=== PATIENT | female | born 1930 ===

== ENCOUNTER 2016-10-13 09:52 | Inpatient (IN) | payer MEDICARE, MEDICAID ==
[2016-10-13] MEDS ORDERED: Acetaminophen 650 MG Suppository ONE (10:05)
[2016-10-13 11:15] LABS: Hemoglobin 12.9 g/dL (12.0-16.0); Mean Corpuscular HGB CONC 31.1 g/dL (32.0-36.0); Mean Corpuscular Hemoglobin 31.1 pg (27.0-31.0); Mean Platelet Volume 8.9 fL (7.4-10.4); Platelet Count 157 thou/uL (130-400); RBC Distribution Width 13.8 % (11.5-14.5); Red Blood Cell (RBC) Count 4.16 mill/uL (4.20-5.40); White Blood Cell (WBC) Count 8.6 thou/uL (4.8-10.8)
[2016-10-13 11:26] LABS: ALT (SGPT) 22 U/L (0-55); AST (SGOT) 24 U/L (5-34); Albumin 2.8 g/dL (3.4-4.8); Alkaline Phosphatase 71 U/L (40-150); Anion Gap 11 mmol/L (10-20); BUN (Urea Nitrogen) 19 mg/dL (9.8-20.1); Bilirubin, Total 0.7 mg/dL (0.2-1.2); Calc. Creatinine Clearance 0 mL/min (70-130); Calcium 8.2 mg/dL (7.8-10.44); Carbon Dioxide 32 mmol/L (23-31); Chloride 118 mmol/L (98-107); Estimated GFR-MDRD 64; Globulin 3.7 g/dL (2.4-3.5); Glucose 120 mg/dL (83-110); Potassium 3.1 mmol/L (3.5-5.1); Protein, Total 6.5 g/dL (5.8-8.1); Sodium 158 mmol/L (136-145)
[2016-10-13 11:28] LABS: CKMB 0.4 ng/mL (0-6.6); Troponin I 0.033 ng/mL (< 0.028)
[2016-10-13 11:50] LABS: Anisocytosis SLIGHT = 6-15 cells (100X) (0-5/hpf); Large Platelets SLIGHT; Lymphocytes 25 % (21-51); MDiff Complete? YES; Monocytes 11 % (0-10); Neutrophil 64 % (42-75)
[2016-10-13 12:18] LABS: Blood, Urine Small (Negative); Clarity Turbid (Clear); Glucose, Urine (Dipstick) Negative (Negative); Leukocyte Trace (Negative); Nitrite Positive (Negative); Protein, Urine (Dipstick) 30 mg/dL (Neg-Trace); Specific Gravity, Urine 1.025 (1.005-1.030)
[2016-10-13 12:20] LABS: Bilirubin Negative (Negative)
[2016-10-13 12:26] LABS: Bacteria/HPF 3+ HPF (None Seen); Crystals/HPF 1+ CA OXALATE HPF (Negative); RBC/HPF 0-3 HPF (0-3); Squamous Epithelial 0-3 HPF (0-3)
[2016-10-13 12:27] LABS: Other Microscopic Description 1+ AMORPHOUS URATES
[2016-10-13] MEDS ORDERED: Levofloxacin 500 mg/D5W 100 ml Premix Bag ONE (12:48)
[2016-10-13] MEDS ORDERED: Ondansetron HCl/PF 4 MG/2 ML Vial IVP PRN (14:04)
[2016-10-13] MEDS ORDERED: Ondansetron ODT 4 MG TAB SL PRN (14:04)
[2016-10-13] MEDS ORDERED: Acetaminophen 325 MG TAB PO PRN (14:04)
[2016-10-13] MEDS ORDERED: Sodium Chloride 0.9% 1,000 ML IV SCH (14:04)
[2016-10-13] MEDS ORDERED: Potassium Chloride 20 MEQ/100 ML PREMIX BAG IVPB SCH (17:45)
[2016-10-13] MEDS ORDERED: Labetalol HCl 100 MG/20 ML VIAL SLOW IVP PRN (18:50)
[2016-10-13 18:56] LABS: CKMB 0.8 ng/mL (0-6.6)
[2016-10-13] MEDS: Dextrose 5 %-0.45 % NaCl 1,000 ML IV SCH (19:44)
--- NOTE | 2016-10-13 20:28 | CT ---
CT OF THE BRAIN WITHOUT CONTRAST 10/13/16 No prior studies were available for comparison. Diffuse severe atrophy is present. There is moderate dilation of the ventricles, though it seems mor e likely that it is due to the severe atrophy than any obstruction. All ventricles are dilated somew hat. Periventricular and deep white matter lucency is profound and suggestive of chronic ischemic ch anges. There was no mass or sign of definite acute stroke. No bleeding was seen. The calvarium appea rs intact and the visible paranasal sinuses are clear. There does appear to be a very short air flui d level in the sphenoid sinus, but I see no reason for it otherwise. IMPRESSION: Severe atrophy and chronic ischemic changes. Prominent sized ventricles, but it seems a little more likely that this is due to the severe atrophy present than anything acute. POS: HOME
--- NOTE | 2016-10-13 20:58 | RAD ---
PORTABLE CHEST 10/13/16 An AP portable film at 1047 is presented with no prior films available for comparison. This portable film at 1047 snows mild cardiomegaly but no vascular congestion, edema, or large pleural effusion. While the patient is turned to the side slightly, no definite lobar infiltrate was seen. left basila r infiltrates would be easily missed on this study. Faint calcification is seen in the aortic arch. The bones are osteopenic. IMPRESSION: Mild cardiomegaly but no definite acute findings. POS: HOME
[2016-10-13] MEDS: Metoprolol Tartrate 25 MG TAB PO SCH (21:25)
--- NOTE | 2016-10-13 23:13 | HP ---
CHIEF COMPLAINT: Alteration of mental status and lethargy. HISTORY OF PRESENT ILLNESS: Ms. Guerra is an 86-year-old female resident of [facility] for the past 3 months, who presented to the emergency room after she has had a decline in overall mental status over the last couple of weeks. She does have a history of Alzheimer's dementia and is on max medical therapy and apparently has had a decline in appetite and increased drowsiness over the last couple of weeks. Apparently yesterday, she had a fall , but did not hit her head. Neurological evaluation was performed by the nursing staff at the hospital, and she continued to decline in her alertness, and therefore it was recommended she go to the emergency department today to be further evaluated. In the emergency room, she was found to be extremely dehydrated with hypernatremia, hypokalemia, evidence of urinary tract infection with positive nitrite and indeterminate troponin. Patient has been given some IV fluids in the emergency room and antibiotics and has been admitted for further treatment of her dehydration, hypernatremia, urinary tract infection, and followup of cultures. Patient apparently was febrile in the ambulance of 101.3, in the ER was 99. Her blood pressure and heart rate have been stable. She had lab work performed at the nursing facility yesterday that showed elevation of her white blood cell count at 11.6 with improvement of that today to 8.6 with 64% neutrophils and 21.6% lymphocytes. She has a history of coronary artery disease and takes aspirin and Plavix. Per PA at the detention, the patient has lucid intervals in which she is aware of her person, but not place or time. She normally is able to feed herself and spends majority of time in wheelchair. PAST MEDICAL HISTORY: 1. Depression. 2. Coronary artery disease. 3. Hypertension. 4. Alzheimer's disease. 5. Hyperlipidemia. 6. Osteoarthritis. PAST SURGICAL HISTORY: Cannot be verified per detention charting or with patient. She does have scarring to the left knee to the medial and lateral aspects, which could be from prior fracture management or some type of peripheral vascular surgery. ALLERGIES: MEPERIDINE and SULFA. MEDICATIONS: Amlodipine 5 mg daily, Lopressor 50 mg b.i.d., Namenda 10 mg b.i.d., Lexapro 10 mg daily, Plavix 75 mg daily, Ecotrin 81 mg daily, Aricept 10 mg daily. Patient had been on Risperdal, but this has been discontinued over the past 7 days. SOCIAL HISTORY: Patient has been a resident of [facility] for approximately 3 months and was transferred from another facility after family members were no longer able to take care of her. Negative smoking and alcohol per recent history. Patient is . FAMILY HISTORY: Noncontributory. REVIEW OF SYSTEMS: Ten-system review unable to be obtained from the patient, but as reported per HPI. PHYSICAL EXAMINATION: VITAL SIGNS: Presenting vital signs to the ER blood pressure 160/72, heart rate 75, O2 sat 89% on room air, respirations 18, temperature 101.1 rectal. On the floor, temperature 98.0, pulse 66, respirations 12, 99% O2 sat on 2 liters per minute, blood pressure 176/77. NEUROLOGIC: Well-developed, thin female in no acute distress, somnolent, but arouses with calling her name. She will occasionally answer questions. Denies pain. She will intermittently follow commands. She quickly falls back asleep if not stimulated. HEENT: Normocephalic, atraumatic. Pupils equally, round, and reactive to light and accommodation. Extraocular muscles could not be grossly evaluated due to lack of patient cooperation. Nares are patent without discharge. Tongue protrudes in the midline. NECK: Supple without lymphadenopathy, thyromegaly, JVD, or bruit. HEART: Regular rate and rhythm with normal S1, S2. No murmurs, clicks, rubs, or gallops. LUNGS: Clear to auscultation with good air entry bilaterally. No crackles or wheezes. ABDOMEN: Positive bowel sounds in all four quadrants. Soft, nontender, nondistended, no masses, guarding, or rebound tenderness. EXTREMITIES: No cyanosis, clubbing, or edema. NEUROLOGICAL: Cranial nerves II through XII are grossly intact without focal deficits, but unable to assess extraocular muscles due to lack of cooperation, but grossly follows figures with her eyes. She holds her right hand and a flexion automatic developer, but seems to have no weakness, otherwise of the right upper extremity. Left lower extremity is without obvious weakness and has a normal grasp. Bilateral lower extremity weakness. Babinskis are negative bilaterally. No clonus. LABORATORY DATA: White count 8.6, hemoglobin 12.9, hematocrit 41.6, MCV 100, platelets 157, 64% neutrophils, 25% lymphocytes. Sodium 158, potassium 3.1, chloride 118, bicarb 32, BUN 19, creatinine 0.84, glucose 120, calcium 8.2. Total bilirubin 0.7, AST 24, ALT 22, alkaline phosphatase 71, CK-MB 0.4, troponin I 0.033 (no baseline for comparison), albumin 2.8, globulin 3.7, urine significant for 30 protein, trace ketones, small blood, positive nitrite, trace LE, 0-3 rbc, 7-10 wbc, calcium oxalate crystals 1+, 3+ bacteria, and amorphous urate is 1+, urine culture pending, blood culture x2 pending. IMAGING: Portable chest x-ray difficult to interpret with left lung base not well seen. Radiology report pending. EKG right bundle branch block with inverted T waves anteriorly with no old EKG to compare, no ST elevation or depression. Sinus rhythm. ASSESSMENT AND PLAN: 1. Altered mental status, acute on chronic. This is likely multifactorial due to profound dehydration with hypernatremia, hypokalemia, urinary tract infection , and advanced Alzheimer dementia. Patient has been given 1500 mL of normal saline in 500 mL bolus x3 in the emergency department and has been ordered to run at 125 ml/hr overnight. We will rule out further contributing factors with a CT scan of the brain without contrast. TSH has been done yesterday at the nursing facility and was normal. As her sodium improves, her potassium improves and her infection is treated, hopefully her mental status will clear to her baseline, which at this point is still unclear. 2. Hypernatremia. Please see problem #1. 3. Hypokalemia. We will order 20 mEq IV potassium of piggyback. We will repeat her chemistry profile in the a.m. 4. Dehydration. Please see problem #1. 5. Urinary tract infection. Patient was administered Levaquin 250 mg IV and will continue this every 24 hours. We will follow up urine and blood cultures x2. 6. Alzheimer's disease. If to make the patient's mental status improves, she will be administered her Namenda and Aricept. 7. Depression. If the patient's mental status improves enough for her to be safe with oral intake, she will be continued on her escitalopram. 8. Hypertension. This will be monitored. Patient will be continued on her home meds, again if her oral intake improves. We will write p.r.n. Sadiapressor IV. 9. Coronary artery disease. Patient will be continued on her aspirin and Plavix. 10. Hyperlipidemia. Patient is currently not on statin therapy more than likely due to age. 11. Code status. Patient has a responsible libertarian listed, who is her daughter who states that she has an out of hospital, DO NOT RESUSCITATE as well as her medical power of automatic developer on file at home. This was verified by ED nursing staff with the nursing facility. I am not able to speak with the medical power of automatic developer directly during the course of this admission to determine her code status overnight. Therefore, she will remain FULL CODE. 12. Prophylaxis. We will give Protonix IV for now as well as oral intake improves and place TEDs and SCDs on the patient. JASMIN
[2016-10-14] MEDS: Dextrose 5 %-0.45 % NaCl 1,000 ML IV SCH ×2 (05:29→17:45)
[2016-10-14 06:31] LABS: Band 2 % (5-11); Eosinophils 5 % (0-10); Hemoglobin 10.7 g/dL (12.0-16.0); Lymphocytes 19 % (21-51); MDiff Complete? YES; Mean Corpuscular HGB CONC 32.6 g/dL (32.0-36.0); Mean Corpuscular Hemoglobin 32.4 pg (27.0-31.0); Mean Corpuscular Volume 99.1 fl (81.0-99.0); Mean Platelet Volume 9.6 fL (7.4-10.4); Monocytes 5 % (0-10); Neutrophil 69 % (42-75); Platelet Count 124 thou/uL (130-400); RBC Distribution Width 13.4 % (11.5-14.5); Red Blood Cell (RBC) Count 3.31 mill/uL (4.20-5.40); White Blood Cell (WBC) Count 8.3 thou/uL (4.8-10.8)
[2016-10-14 06:40] LABS: Anion Gap 7 mmol/L (10-20); BUN (Urea Nitrogen) 12 mg/dL (9.8-20.1); Calc. Creatinine Clearance 56 mL/min (70-130); Calcium 7.4 mg/dL (7.8-10.44); Carbon Dioxide 28 mmol/L (23-31); Chloride 121 mmol/L (98-107); Estimated GFR-MDRD Greater than 90; Glucose 154 mg/dL (83-110); Potassium 3.3 mmol/L (3.5-5.1); Sodium 153 mmol/L (136-145)
[2016-10-14] MEDS: Clopidogrel Bisulfate 75 MG TAB PO SCH (09:00)
[2016-10-14] MEDS ORDERED: Donepezil HCl 10 MG TAB PO SCH (09:00)
[2016-10-14] MEDS: Aspirin 81 mg Enteric Coated Tablet PO SCH (09:00)
[2016-10-14] MEDS ORDERED: Escitalopram Oxalate 20 mg Tablet PO SCH (09:00)
[2016-10-14] MEDS: Metoprolol Tartrate 25 MG TAB PO SCH ×2 (09:00→20:43)
[2016-10-14] MEDS: Levofloxacin/D5W 250 MG in Premix Bag 1 BAG IVPB SCH (14:41)
[2016-10-14] MEDS: Pantoprazole 40 MG VIAL IVP SCH (14:41)
[2016-10-14] MEDS: Donepezil HCl 10 MG TAB PO SCH (20:43)
[2016-10-15] MEDS: Dextrose 5 %-0.45 % NaCl 1,000 ML IV SCH ×3 (04:03→13:39)
[2016-10-15] MEDS: Nystatin Powder 15 GM BOT TOP PRN (04:11)
[2016-10-15] MEDS: Pantoprazole 40 MG VIAL IVP SCH (08:37)
[2016-10-15] MEDS: Metoprolol Tartrate 25 MG TAB PO SCH ×2 (08:37→20:32)
[2016-10-15] MEDS: Aspirin 81 mg Enteric Coated Tablet PO SCH (08:39)
[2016-10-15] MEDS: Clopidogrel Bisulfate 75 MG TAB PO SCH (08:40)
[2016-10-15] MEDS: Nystatin Powder 15 GM BOT TOP SCH (08:57)
[2016-10-15] MEDS: Levofloxacin/D5W 250 MG in Premix Bag 1 BAG IVPB SCH (13:22)
[2016-10-15] MEDS: Donepezil HCl 10 MG TAB PO SCH (20:32)
[2016-10-16] MEDS: Dextrose 5 %-0.45 % NaCl 1,000 ML IV SCH ×4 (00:34→16:00)
[2016-10-16 08:28] LABS: ALT (SGPT) 16 U/L (0-55); AST (SGOT) 19 U/L (5-34); Albumin 2.3 g/dL (3.4-4.8); Alkaline Phosphatase 59 U/L (40-150); Anion Gap 9 mmol/L (10-20); BUN (Urea Nitrogen) 4 mg/dL (9.8-20.1); Bilirubin, Total 0.5 mg/dL (0.2-1.2); Calc. Creatinine Clearance 59 mL/min (70-130); Calcium 7.4 mg/dL (7.8-10.44); Carbon Dioxide 29 mmol/L (23-31); Chloride 110 mmol/L (98-107); Estimated GFR-MDRD Greater than 90; Globulin 2.9 g/dL (2.4-3.5); Glucose 117 mg/dL (83-110); Protein, Total 5.2 g/dL (5.8-8.1); Sodium 145 mmol/L (136-145)
[2016-10-16 08:41] LABS: Potassium 2.7 mmol/L (3.5-5.1)
[2016-10-16 08:58] LABS: #Basophils 0.1 thou/uL (0.0-0.2); #Eosinphils 0.2 thou/uL (0.0-0.7); #Lymphocytes 1.1 thou/uL (1.20-3.40); #Monocytes 0.8 thou/uL (0.11-0.59); #Neutrophils 5.3 thou/uL (1.40-6.50); %Basophils 0.9 % (0.0-1.0); %Eosinophils 2.4 % (0.0-10.0); %Lymphocytes 15.2 % (21.0-51.0); %Monocytes 10.9 % (0.0-10.0); %Neutrophils 70.6 % (42.0-75.0); Hemoglobin 11.8 g/dL (12.0-16.0); Mean Corpuscular HGB CONC 34.6 g/dL (32.0-36.0); Mean Corpuscular Hemoglobin 32.9 pg (27.0-31.0); Mean Platelet Volume 9.8 fL (7.4-10.4); Platelet Count 118 thou/uL (130-400); RBC Distribution Width 12.6 % (11.5-14.5); Red Blood Cell (RBC) Count 3.59 mill/uL (4.20-5.40); White Blood Cell (WBC) Count 7.4 thou/uL (4.8-10.8)
[2016-10-16] MEDS ORDERED: Potassium Chloride 20 MEQ TAB PO SCH (09:00)
[2016-10-16 09:56] VITALS: BMI 20.7
[2016-10-16] MEDS: Pantoprazole 40 MG VIAL IVP SCH (10:24)
[2016-10-16] MEDS: Aspirin 81 mg Enteric Coated Tablet PO SCH (10:24)
[2016-10-16] MEDS: Metoprolol Tartrate 25 MG TAB PO SCH ×2 (10:27→20:47)
[2016-10-16] MEDS: Clopidogrel Bisulfate 75 MG TAB PO SCH (10:28)
[2016-10-16] MEDS: Nystatin Powder 15 GM BOT TOP SCH (10:35)
[2016-10-16] MEDS ORDERED: Ciprofloxacin 500 MG TAB PO SCH (12:45)
[2016-10-16] MEDS: Potassium Chloride 20 MEQ TAB PO SCH (17:57)
[2016-10-16] MEDS: Ciprofloxacin 500 MG TAB PO SCH (20:47)
[2016-10-16] MEDS: Donepezil HCl 10 MG TAB PO SCH (20:47)
[2016-10-16] MEDS: Nystatin Powder 15 GM BOT TOP PRN (20:48)
--- NOTE | 2016-10-16 21:08 | RAD ---
2922PORTABLE CHEST: Date: 10-16-16 An AP portable film at 0844 is compared with a 10-13-16 study. FINDINGS: The heart size is unchanged and is not exceptionally large. There are no congestive changes or pleur al effusions. No definite pulmonary infiltrates were seen to suggest pneumonia. Left base is not see n as well as the right, however. No acute bony changes were detected. IMPRESSION: No acute thoracic finding. POS: HOME
[2016-10-16 22:44] VITALS: TEMP 98.6
[2016-10-17] MEDS: Dextrose 5 %-0.45 % NaCl 1,000 ML IV SCH (02:04)
[2016-10-17] MEDS: Ciprofloxacin 500 MG TAB PO SCH (05:52)
[2016-10-17 06:12] LABS: #Basophils 0.1 thou/uL (0.0-0.2); #Eosinphils 0.2 thou/uL (0.0-0.7); #Lymphocytes 1.3 thou/uL (1.20-3.40); #Monocytes 0.8 thou/uL (0.11-0.59); #Neutrophils 5.7 thou/uL (1.40-6.50); %Eosinophils 2.2 % (0.0-10.0); %Lymphocytes 16.4 % (21.0-51.0); %Monocytes 9.7 % (0.0-10.0); %Neutrophils 70.7 % (42.0-75.0); Hemoglobin 11.5 g/dL (12.0-16.0); Mean Corpuscular HGB CONC 32.7 g/dL (32.0-36.0); Mean Corpuscular Hemoglobin 31.3 pg (27.0-31.0); Mean Corpuscular Volume 95.7 fl (81.0-99.0); Mean Platelet Volume 9.7 fL (7.4-10.4); Platelet Count 133 thou/uL (130-400); RBC Distribution Width 12.8 % (11.5-14.5); Red Blood Cell (RBC) Count 3.67 mill/uL (4.20-5.40); White Blood Cell (WBC) Count 8.1 thou/uL (4.8-10.8)
[2016-10-17 06:25] LABS: ALT (SGPT) 13 U/L (0-55); AST (SGOT) 17 U/L (5-34); Albumin 2.3 g/dL (3.4-4.8); Alkaline Phosphatase 60 U/L (40-150); Anion Gap 9 mmol/L (10-20); BUN (Urea Nitrogen) 3 mg/dL (9.8-20.1); Bilirubin, Total 0.5 mg/dL (0.2-1.2); Calc. Creatinine Clearance 61 mL/min (70-130); Calcium 7.7 mg/dL (7.8-10.44); Carbon Dioxide 29 mmol/L (23-31); Chloride 109 mmol/L (98-107); Estimated GFR-MDRD Greater than 90; Globulin 3.3 g/dL (2.4-3.5); Glucose 104 mg/dL (83-110); Potassium 3.4 mmol/L (3.5-5.1); Protein, Total 5.6 g/dL (5.8-8.1); Sodium 144 mmol/L (136-145)
[2016-10-17] MEDS ORDERED: Potassium Chloride 20 MEQ TAB PO SCH (08:00)
[2016-10-17] MEDS: Pantoprazole 40 MG VIAL IVP SCH (08:00)
[2016-10-17] MEDS: Metoprolol Tartrate 25 MG TAB PO SCH (08:01)
[2016-10-17] MEDS: Clopidogrel Bisulfate 75 MG TAB PO SCH (08:01)
[2016-10-17] MEDS: Aspirin 81 mg Enteric Coated Tablet PO SCH (08:01)
[2016-10-17] MEDS: Potassium Chloride 20 MEQ TAB PO SCH (08:01)
[2016-10-17 08:02] VITALS: BP 162/60
[2016-10-17] MEDS: Nystatin Powder 15 GM BOT TOP SCH (10:09)
--- NOTE | 2016-10-17 18:03 | DIS ---
DATE OF ADMISSION: 10/13/2016 DATE OF DISCHARGE: 10/17/2016 ADMISSION DIAGNOSES: Include hypernatremia, hypokalemia, dehydration, urinary tract infection, Alzheimer's disease, and altered mental status. SECONDARY DIAGNOSES: Include depression, hypertension, coronary artery disease , and hyperlipidemia. PROCEDURES: On 10/13/2016, chest x-ray showing mild cardiomegaly but no definite acute findings; and on 10/13/2016, brain CT is showing severe atrophy and chronic ischemic changes, prominent-sized ventricles, but it seems a little more likely that this is due to the severe atrophy present more than anything acute. Also, a chest x-ray on 10/16/2016 is showing no acute thoracic findings. HOSPITAL COURSE: An 86-year-old female resident of [facility] presented to the emergency room due to a notable decline in mental status, although she does have a noted history of advancing Alzheimer dementia. Lab evaluation noted multiple electrolyte abnormalities including hypernatremia and hypokalemia along with the patient being positive for urinary tract infection; she was notably dehydrated. Therefore, the patient was admitted and subsequently rehydrated on D5 half normal saline, which was slowly titrated down in volume. She also had potassium repleted orally and will be able to continue on 20 mEq of potassium chloride daily onward. As for the urinary tract infection, urine culture displayed both E. coli and alpha hemolytic streptococcus, which was notably pansensitive. She initially on admission was started on IV Levaquin and this was transitioned to p.o. ciprofloxacin, to continue for 4 more days upon discharge. The patient notably improved by her lab evaluation during her stay. However, she is poorly responsive secondary to her advanced dementia, and there is some question as to whether her advancing dementia will enable her to satisfactorily thrive; she is high risk for re-development of dehydration. Due to this, I will seek a hospice evaluation at her half-way facility. At this time, she is stable for discharge. She has had adequate correction of her labs, hydration status and we will continue care for her urinary tract infection. DISCHARGE DISPOSITION: The patient will return to [facility] and would like hospice evaluation at that facility. She is followed by Dr. Lee. DISCHARGE MEDICATIONS: She was discharged on 2 new medications; ciprofloxacin 500 mg p.o. b.i.d. x4 more days, and potassium chloride 20 mEq p.o. daily. Her other usual medications will be continued, which include amlodipine 5 mg daily, Lopressor 50 mg p.o. b.i.d., Namenda 10 mg p.o. b.i.d., Lexapro 10 mg p.o. daily , Plavix 75 mg p.o. daily, Ecotrin 81 mg p.o. daily, Aricept 10 mg p.o. daily. MTDD
== END 2016-10-17 10:50 | DRG 641 ==
LOC: BURERS 09:52 → BURMED 12:51
PROVIDERS: ADMIT Family Medicine; ATTEND Family Medicine
DX: E87.0 Hyperosmolality and hypernatremia (principal); E86.0 Dehydration; N39.0 Urinary tract infection, site not specified; G30.9 Alzheimer's disease, unspecified; F02.80 Dementia in other diseases classified elsewhere, unspecified severity, without behavioral disturbance, psychotic disturbance, mood disturbance, and anxiety; E87.6 Hypokalemia; B96.20 Unspecified Escherichia coli [E. coli] as the cause of diseases classified elsewhere; B95.4 Other streptococcus as the cause of diseases classified elsewhere; Z66 Do not resuscitate; I25.10 Atherosclerotic heart disease of native coronary artery without angina pectoris; F32.9 Major depressive disorder, single episode, unspecified; I10 Essential (primary) hypertension; E78.5 Hyperlipidemia, unspecified; M19.90 Unspecified osteoarthritis, unspecified site; Z88.2 Allergy status to sulfonamides; Z88.8 Allergy status to other drugs, medicaments and biological substances
CPT/HCPCS: 36415; 51701; 70450; 71010; 80048; 80053; 81003; 81015; 82553; 84134; 84484; 85025; 87040; 87077; 87086; 87186; 93005; 96365; A4216; A4353; C9113; G8996-GN-CK; G8997-GN-CJ; J1610; J1956; J3480

== ENCOUNTER 2016-11-15 14:21 | Emergency (ER) | payer MEDICARE, MEDICAID ==
[2016-11-15 14:57] LABS: Blood, Urine Moderate (Negative); Clarity Turbid (Clear); Glucose, Urine (Dipstick) Negative (Negative); Leukocyte Large (Negative); Nitrite Positive (Negative); Protein, Urine (Dipstick) 100 mg/dL (Neg-Trace); Urobilinogen 0.2 mg/dL (0.2-1.0); pH, Urine 5.5 (5.0-9.0)
[2016-11-15] MEDS ORDERED: Piperacillin/Tazobactam 3.375 GM VIAL ONE (15:06)
[2016-11-15] MEDS ORDERED: Sodium Chloride 0.9% 100 ML ONE (15:06)
[2016-11-15 15:12] LABS: CKMB 1.4 ng/mL (0-6.6); Troponin I 0.112 ng/mL (< 0.028)
[2016-11-15 15:14] LABS: Bilirubin Negative (Negative); Specific Gravity, Urine 1.017 (1.002-1.036)
[2016-11-15 15:15] LABS: Bacteria/HPF 4+ HPF (None Seen); Crystals/HPF None Seen HPF (Negative); Hyaline Casts/LPF NONE SEEN LPF (0-3 Hyaline); Other Casts/LPF None Seen LPF (0-3 Hyaline); Oval Fat Bodies/HPF None Seen HPF (None Seen); RBC/HPF 0-3 HPF (0-3); Renal Epithelial None Seen HPF (0-3); Sperm/HPF None Seen HPF (None Seen); Squamous Epithelial 0-3 HPF (0-3); Transitional Epithelial NONE SEEN HPF (0-3); Trichomonas/HPF None Seen HPF (None Seen); Yeast-All Forms None Seen HPF (None Seen)
[2016-11-15 15:21] LABS: Band 3 % (5-11); Eosinophils 1 % (0-10); Hemoglobin 12.4 g/dL (12.0-16.0); Lymphocytes 13 % (21-51); MDiff Complete? YES; Mean Corpuscular HGB CONC 30.5 g/dL (32.0-36.0); Mean Corpuscular Hemoglobin 31.5 pg (27.0-31.0); Mean Platelet Volume 10.9 fL (7.4-10.4); Monocytes 3 % (0-10); Neutrophil 80 % (42-75); Platelet Count 68 thou/uL (130-400); RBC Distribution Width 15.8 % (11.5-14.5); Red Blood Cell (RBC) Count 3.93 mill/uL (4.20-5.40); White Blood Cell (WBC) Count 9.3 thou/uL (4.8-10.8)
[2016-11-15 15:25] LABS: ALT (SGPT) 17 U/L (8-55); AST (SGOT) 18 U/L (5-34); Albumin 2.8 g/dL (3.4-4.8); Alkaline Phosphatase 106 U/L (40-150); BUN (Urea Nitrogen) 173 mg/dL (9.8-20.1); Bilirubin, Total 0.7 mg/dL (0.2-1.2); Calc. Creatinine Clearance 0 mL/min (70-130); Carbon Dioxide 16 mmol/L (23-31); Estimated GFR-MDRD 6; Globulin 3.2 g/dL (2.4-3.5); Glucose 114 mg/dL (83-110); Potassium 6.5 mmol/L (3.5-5.1); Sodium Greater than 175 mmol/L (136-145)
[2016-11-15 15:27] LABS: Chloride Greater than 145 mmol/L (98-107)
[2016-11-15] MEDS ORDERED: Dextrose 50% Abboject 50 ML SYRINGE ONE (15:30)
[2016-11-15] MEDS ORDERED: Insulin Regular 300 UNITS/3 ML VIAL ONE (15:31)
--- NOTE | 2016-11-15 15:37 | RAD ---
SEMIUPRIGHT PORTABLE CHEST 1 VIEW: HISTORY: An 86-year-old female with altered mental status, hypotension, and hypoxia. FINDINGS: There is rotation to the left. There are monitor leads overlying the chest. There is some bilatera l vascular congestion. Heart size is within normal limits. There is diffuse bone demineralization. No confluent pneumonia, overt edema, or pleural effusion. IMPRESSION: Rotation to the left with mild vascular congestion. No confluent pneumonia or overt edema. Bone de mineralization. The amount of congestion may be slightly more prominent than on a 10/16/16 study. POS: [facility]
[2016-11-15 16:09] LABS: ALT (SGPT) 16 U/L (8-55); AST (SGOT) 17 U/L (5-34); Albumin 2.4 g/dL (3.4-4.8); Alkaline Phosphatase 92 U/L (40-150); Bilirubin, Total 0.6 mg/dL (0.2-1.2); Calc. Creatinine Clearance 0 mL/min (70-130); Calcium 7.3 mg/dL (7.8-10.44); Carbon Dioxide 17 mmol/L (23-31); Estimated GFR-MDRD 6; Globulin 2.9 g/dL (2.4-3.5); Glucose 106 mg/dL (83-110); Potassium 6.1 mmol/L (3.5-5.1); Protein, Total 5.3 g/dL (6.0-8.3); Sodium Greater than 175 mmol/L (136-145)
[2016-11-15 16:11] LABS: Chloride Greater than 145 mmol/L (98-107)
[2016-11-15 16:12] LABS: BUN (Urea Nitrogen) 156 mg/dL (9.8-20.1)
--- NOTE | 2016-11-15 17:31 | RAD ---
FRONTAL VIEW CHEST: 11/15/16 COMPARISON: Earlier same day. CLINICAL HISTORY: Central line placement. FINDINGS: There is a left internal jugular venous catheter which traverses midline and ascends the expected re gion of the right internal jugular vein. This terminates overlying the medial aspect of the right cl avicle. No obvious postprocedure pneumothorax. No additional significant interval change. IMPRESSION: Left IJ catheter has been placed which ascends the right internal jugular vein, as discussed above. Consider repositioning and radiographic followup. No obvious postprocedure pneumothorax is depicted. POS: [facility]
== END 2016-11-15 17:48 | disposition home or self-care (01) ==
LOC: BURERS 14:21
DX: A41.9 Sepsis, unspecified organism (principal); E86.0 Dehydration; E87.5 Hyperkalemia; E87.1 Hypo-osmolality and hyponatremia; N39.0 Urinary tract infection, site not specified; I25.10 Atherosclerotic heart disease of native coronary artery without angina pectoris; E78.5 Hyperlipidemia, unspecified; I10 Essential (primary) hypertension; G30.9 Alzheimer's disease, unspecified; F32.9 Major depressive disorder, single episode, unspecified; Z79.82 Long term (current) use of aspirin; Z79.02 Long term (current) use of antithrombotics/antiplatelets; Z79.899 Other long term (current) drug therapy
CPT/HCPCS: 36556; 51702; 71010; 80053; 81003; 81015; 82553; 83605; 84443; 84484; 85025; 87040; 87077; 87086; 87186; 96361; 96365; 96367; 96375; J1815; J2543; J7050